=== PATIENT | male | born 1935 | race Caucasian/White ===

== ENCOUNTER 2017-12-12 10:50 | Emergency (ER) | payer OTHER ==
[~2017-12-12] VITALS: Ht 182.9 cm; Wt 108.9 kg
[2017-12-12 11:04] VITALS: BP 136/74
--- NOTE | 2017-12-12 11:23 | ED MVC/FALL/TRAUMA COMPLAINT ---
History of Present Illness General Chief Complaint: Fall Stated Complaint: BIBA S/P FALL LACE TO RT EYE ELBOW PAIN Source: patient, old records, EMS Exam Limitations: no limitations Vital Signs & Intake/Output Vital Signs & Intake/Output Vital Signs Date Time Temp Pulse Resp B/P B/P Pulse O2 O2 Flow FiO2 Mean Ox Delivery Rate 12/12 1104 95.4 63 18 136/74 99 Room Air Allergies Coded Allergies: NO KNOWN ALLERGIES (03/12/11) Triage Note: BIBA: FELL WHILE WALKING OUT OF STORE. HIT HEAD ON CONCRETE FLOOR. DENIES LOC. SMALL LAC TO R EYEBORW AND R ELBOW. Triage Nurses Notes Reviewed? yes HPI: Patient tripped and had a mechanical fall and hit a wall on his way down. Patient denies any loss of conscious. Patient was unable to get up and sit in a chair. Patient states he then felt a little bit lightheaded but that has subsequently resolved. Patient is unsure when his last tetanus shot was. Patient sustained a laceration to the area above his left eye as well as his right elbow. Patient denies any pain in either location. He has full range of motion. He denies any headache or blurry vision. There is no nausea or vomiting. Past History Travel History Traveled to [place] past 21 day No Medical History Any Pertinent Medical History? see below for history Cardiovascular: hypertension Endocrine: diabetes Surgical History Surgical History: non-contributory Psychosocial History What is your primary language Italian Tobacco Use: Quit >30 days ago ETOH Use: occasional use Family History Hx Contributory? No Review of Systems Review of Systems Constitutional: Reports: no symptoms. Eyes: Reports: no symptoms. Ears, Nose, Throat, Mouth: Reports: no symptoms. Respiratory: Reports: no symptoms. Cardiovascular: Reports: no symptoms. Gastrointestinal/Abdominal: Reports: no symptoms. Genitourinary: Reports: no symptoms. Musculoskeletal: Reports: see HPI. Skin: Reports: no symptoms. Neurological/Psychological: Reports: no symptoms. All Other Systems: Reviewed and Negative Physical Exam Physical Exam General Appearance: well developed/nourished, alert, awake, mild distress Head: lacerations (ABOVE RT EYE) Eyes: Bilateral: PERRL, EOMI. Ears, Nose, Throat, Mouth: hearing grossly normal, moist mucous membrane Neck: normal inspection, supple, full range of motion, no midline tenderness Respiratory: normal breath sounds, chest non-tender, no respiratory distress, lungs clear Cardiovascular: regular rate/rhythm, normal peripheral pulses Gastrointestinal: normal bowel sounds, soft, non-tender, no organomegaly Back: normal inspection, normal range of motion Extremities: LACEWRATION TO RT ELBOW Neurologic/Psych: no motor/sensory deficits, awake, alert, oriented x 3, normal gait, normal mood/affect Skin: normal color, warm/dry Core Measures ACS in differential dx? No CVA/TIA Diagnosis No Sepsis Present: No Sepsis Focused Exam Completed? No Progress Differential Diagnosis: ext injury, ICH Plan of Care: Orders Procedure Date/time Status XRY-ELBOW 3 OR MORE VIEWS, R 12/12 1122 Active Diagnostic Imaging: Viewed by Me: Radiology Read, CT Scan. Discussed w/RAD: Radiology Read, CT Scan. Radiology Impression: PATIENT: LUCIA MCKENNA PRESENT AGE: 82 PATIENT ACCOUNT NO: [id number] : 37 LOCATION: [facility] ORDERING PHYSICIAN: Theo Osorio MD SERVICE DATE: 12/12/17 EXAM TYPE: CAT - CT HEAD WO IV CONTRAST EXAMINATION: CT HEAD WITHOUT CONTRAST CLINICAL INFORMATION: Fall. Head injury. [place] dizzy after fall. Presumptive diagnosis of intracranial hemorrhage. COMPARISON: CT scan of the head dated 01/2011. TECHNIQUE: Contiguous axial imaging was performed from the skull base to vertex without intravenous administration of contrast. DLP: 616.58 mGy-cm FINDINGS: Prominent streak artifact limits assessment. There is no evidence of acute intracranial hemorrhage or territorial infarction. No abnormal mass effect or midline shift is seen. Aguilar to white matter differentiation is well preserved. No extra-axial fluid collections are identified. The ventricles are normal in size. There is no abnormal attenuation within the brain parenchyma. The osseous structures and soft tissues are normal. The mastoid air cells and visualized portions of the paranasal sinuses are well aerated. IMPRESSION: No acute intracranial pathology. DICTATED BY: Alia Canchola MD DATE/TIME DICTATED:12/12/171258 CARE ASSISTANT:KIM DATE/TIME TRANSCRIBED:1258 CONFIDENTIAL, DO NOT COPY WITHOUT APPROPRIATE AUTHORIZATION. < Electronically signed in Other Vendor System> SIGNED BY: Alia Canchola MD 12/12/17 1309 Departure Departure Disposition: HOME OR SELF CARE Condition: Stable Clinical Impression Primary Impression: Head injury Secondary Impressions: Elbow contusion, Laceration Referrals: Carmenza LEDEZMA,Moody Gaviria (PCP/Family) Additional Instructions: There is no evidence of a retained foreign body in your laceration. If there is something remaining then 1 of 3 things will happen. The first is that your body will just work the foreign material out and it will just fall away, the second thing is that your body will wall it off and nothing will happen, the third is that it will get infected. Signs of infection are area will turn hot to the touch the area will turn red or there will be pus drainage. If any of those things occur do not hesitate and return immediately to the emergency department. The area will turn pink as part of the normal healing process. Have your sutures removed in 10 days for the sutures in the right elbow and 5 days for the sutures and near head or return sooner for any of the above or for any other concerns. Departure Forms: Customer Survey General Discharge Information Procedures Laceration/Wound Repair Laceration/Wound Repair: Wound Location: head, upper extremity Wound's Depth, Shape: linear Wound Length (cm): 10 Wound Explored: clean, no foreign body removed Irrigated w/ Saline (ccs): 50 Betadine Prep? Yes Anesthesia: 2% lidocaine Volume Anesthetic (ccs): 5 Wound Repaired With: sutures Suture Size/Type: 6:0, 4:0 Number of Sutures: 10 Layer Closure? No Tetanus Status: not up to date
--- NOTE | 2017-12-12 13:09 | CT SCAN REPORT ---
EXAMINATION: CT HEAD WITHOUT CONTRAST CLINICAL INFORMATION: Fall. Head injury. [place] dizzy after fall. Presumptive diagnosis of intracranial hemorrhage. COMPARISON: CT scan of the head dated 03/12/2011. TECHNIQUE: Contiguous axial imaging was performed from the skull base to vertex without intravenous administration of contrast. DLP: 616.58 mGy-cm FINDINGS: Prominent streak artifact limits assessment. There is no evidence of acute intracranial hemorrhage or territorial infarction. No abnormal mass effect or midline shift is seen. Aguilar to white matter differentiation is well preserved. No extra-axial fluid collections are identified. The ventricles are normal in size. There is no abnormal attenuation within the brain parenchyma. The osseous structures and soft tissues are normal. The mastoid air cells and visualized portions of the paranasal sinuses are well aerated. IMPRESSION: No acute intracranial pathology.
--- NOTE | 2017-12-12 13:25 | RADIOLOGY REPORT ---
EXAMINATION: XR ELBOW, RIGHT CLINICAL INFORMATION: Pain status post fall. Evaluate for fracture. COMPARISON: None TECHNIQUE: Three views of the right elbow performed on 6 images. FINDINGS: Evaluation is slightly limited due to nonstandard positioning. No definite acute fracture or dislocation is seen. There is degenerative change in the trochlea medial epicondylar joint. Mild spurring is seen at the ulnar coronoid process and olecranon. Well-corticated bone fragment is seen adjacent to the lateral epicondyle, consistent with old healed avulsion injury. There is some calcification seen within the joint. IMPRESSION: 1. No definite acute fracture or dislocation. 2. 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 Small calcific density is also seen in the elbow joint. 3. Old avulsion injury from the lateral humeral epicondyle.
== END 2017-12-12 13:49 ==
LOC: ERH 10:50
DX: S51.011A Laceration without foreign body of right elbow, initial encounter (principal); S50.01XA Contusion of right elbow, initial encounter; S09.90XA Unspecified injury of head, initial encounter; W18.09XA Striking against other object with subsequent fall, initial encounter; Y92.512 Supermarket, store or market as the place of occurrence of the external cause; Y93.9 Activity, unspecified
CPT/HCPCS: 73080-RT; 90471; 90714; J2001